=== PATIENT | female | born 1970 | race Caucasian/White ===

== ENCOUNTER → 2016-10-10 | Outpatient (CLI) | payer OTHER ==
[~2016-10-10] MED LIST: ATEN25TA PO; CYAN3INJ IM; LORA1TAB13 PO; MULT-506 PO; OMEP40CA PO
[2016-10-10 17:49] LABS: BASO % 0.2 %; BASO ABS # 0.02 K/uL (0-0.2); EOS % 2.4 %; HEMATOCRIT 42.9 % (37-47); IG% 0.1 %; LYMPH % 36.2 %; LYMPH ABS # 3.45 K/uL (1.2-3.4); MEAN CELL VOLUME 89.6 fL (80-100); MEAN CORPUSCULAR HEMOGLOBIN 29.2 pg (25-34); MEAN CORPUSCULAR HGB CONC 32.6 g/dl (32-36); MEAN PLATELET VOLUME 9.4 fL (7.4-10.4); MONO % 7.1 %; PLATELET COUNT 201 K/uL (130-400); RED BLOOD COUNT 4.79 M/uL (4.2-5.4); WHITE BLOOD COUNT 9.52 K/uL (4.8-10.8)
[2016-10-10 18:22] LABS: ALT/SGPT 24 U/L (12-78); AST/SGOT 18 U/L (15-37); BLOOD UREA NITROGEN 13 mg/dl (7-18); BUN/CREATININE RATIO 21.3 (10-20); CALCIUM 8.7 mg/dl (8.5-10.1); CARBON DIOXIDE 26 mmol/L (21-32); CHLORIDE 108 mmol/L (98-107); CREATININE 0.61 mg/dl (0.60-1.20); GLUCOSE 90 mg/dl (70-99); POTASSIUM 4.2 mmol/L (3.5-5.1); SODIUM 141 mmol/L (136-145)
[2016-10-10 18:29] LABS: ALB/GLOB RATIO 0.9 (0.9-2); ALKALINE PHOSPHATASE 111 U/L (45-117); TOTAL IRON BINDING CAPACITY 432 mcg/dl (250-450)
[2016-10-10 19:04] LABS: ANISOCYTOSIS PRESENT; COMPLETE YES
[2016-10-11 07:49] LABS: ESTIMATED AVERAGE GLUCOSE 126 mg/dl; HA1C FLAG Normal (Normal)
== END | disposition home or self-care (01) ==
LOC: C.LABPVFM 15:48
PROVIDERS: ATTEND Family Medicine
DX: I10 Essential (primary) hypertension (principal); R73.9 Hyperglycemia, unspecified; D50.9 Iron deficiency anemia, unspecified

== ENCOUNTER → 2016-12-11 | Outpatient (CLI) | payer OTHER ==
--- NOTE | 2016-12-11 15:36 | DIAGNOSTIC IMAGING REPORT ---
LEFT RIBS UNILATERAL WITH PA CHEST CLINICAL HISTORY: RIB PAIN L trauma. Pain. COMPARISON STUDY: None FINDINGS: Nondisplaced cortical fractures anterior left ninth and 10th ribs. All remaining ribs are unremarkable. There is no evidence of pneumothorax. IMPRESSION: Nondisplaced cortical fractures left ninth and 10th ribs. Electronically signed by: Helio Greene M.D. 12/11/2016 3:35 PM Dictated Date/Time: 12/11/2016 3:34 PM
== END | disposition home or self-care (01) ==
LOC: C.RADPV 15:06
PROVIDERS: ATTEND Family Medicine
DX: R07.81 Pleurodynia (principal); S22.42XA Multiple fractures of ribs, left side, initial encounter for closed fracture; X58.XXXA Exposure to other specified factors, initial encounter

== ENCOUNTER → 2017-08-06 | Outpatient (CLI) | payer OTHER ==
--- NOTE | 2017-08-06 11:10 | DIAGNOSTIC IMAGING REPORT ---
CHEST 2 VIEWS ROUTINE CLINICAL HISTORY: J45.909 [id number] dyspnea COMPARISON STUDY: 05/31/2016 FINDINGS: The bones soft tissues and hemidiaphragms are normal. The cardiomediastinal silhouette is normal. The lungs are clear. The pulmonary vasculature is normal. IMPRESSION: Negative chest. The above report was generated using voice recognition software. It may contain grammatical, syntax or spelling errors. Electronically signed by: Helio Greene M.D. 08/06/2017 11:09 AM Dictated Date/Time: 08/06/2017 11:09 AM
[2017-08-06 12:17] LABS: BASO % 0.3 %; BASO ABS # 0.02 K/uL (0-0.2); EOS % 1.2 %; EOS ABS # 0.09 K/uL (0-0.5); HEMATOCRIT 43.1 % (37-47); HEMOGLOBIN 14.5 g/dL (12.0-16.0); IG# 0.01 K/uL (0.00-0.02); LYMPH % 29.8 %; LYMPH ABS # 2.22 K/uL (1.2-3.4); MEAN CELL VOLUME 99.8 fL (80-100); MEAN CORPUSCULAR HEMOGLOBIN 33.6 pg (25-34); MEAN CORPUSCULAR HGB CONC 33.6 g/dl (32-36); MEAN PLATELET VOLUME 10.4 fL (7.4-10.4); MONO % 6.4 %; MONO ABS # 0.48 K/uL (0.11-0.59); NEUT % 62.2 %; NEUT ABS # 4.64 K/uL (1.4-6.5); PLATELET COUNT 208 K/uL (130-400); WHITE BLOOD COUNT 7.46 K/uL (4.8-10.8)
== END | disposition home or self-care (01) ==
LOC: C.RAD 10:18
PROVIDERS: ATTEND Physician Assistant Medical
DX: J45.909 Unspecified asthma, uncomplicated (principal)